=== PATIENT | male | born 1965 | race Caucasian/White ===

== ENCOUNTER → 2016-08-07 | Outpatient (CLI) | payer OTHER ==
--- NOTE | 2016-08-07 15:10 | CT ---
EXAMINATION TYPE: CT abdomen wo con DATE OF EXAM: 08/07/2016 2:57 PM COMPARISON: NONE HISTORY: Abdominal hernia CT DLP: 744 mGycm Automated exposure control for dose reduction was used. TECHNIQUE: Helical acquisition of images was performed from the lung bases through the top of iliac crest to include entire abdomen. CONTRAST: Performed with Oral Contrast and without IV contrast. FINDINGS: Visualized portions of the lungs are clear. There is no pleural or pericardial fluid. The h eart is not enlarged. Within the abdomen, the liver, spleen and gallbladder appear normal. Both adrenal glands appear normal. There is no evidence of hydronephrosis or nephrolithiasis. The pancreas is normal. There is mild to moderate atheromatous calcification of the abdominal aorta and iliac vessels. There is no significant retroperitoneal adenopathy. There is some thickening of the first and second as well as the third part of the duodenum. The remai nder of the small bowel and colon are normal. There is no free fluid or free air. There is a right-sided pars defect at L5. There is a stress reaction in the pars interarticularis on the left. There is no spondylolisthesis. There is mild hypertrophic spondylosis in the lower dorsal s pine. There is a periumbilical hernia containing fat only with a mouth measuring 9 mm. IMPRESSION: 1. THICKENING OF THE FIRST THROUGH THIRD PARTS OF THE DUODENUM OF QUESTIONABLE ETIOLOGY. PLEASE CORRE LATE FOR DUODENITIS. 2. 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 3. MILD DEGENERATIVE CHANGE IN THE SPINE. 4. PERIUMBILICAL HERNIA CONTAINING FAT ONLY WITH A MOUTH MEASURING 9 MM.
== END | disposition home or self-care (01) ==
LOC: RADCTMAIN 13:54
PROVIDERS: ATTEND Family Medicine
DX: K42.9 Umbilical hernia without obstruction or gangrene (principal); K63.89 Other specified diseases of intestine
CPT/HCPCS: 74150

== ENCOUNTER → 2016-08-21 | Outpatient (CLI) | payer OTHER ==
[2016-08-21 10:57] LABS: ALT 109 U/L (21-72); AST 71 U/L (17-59); Alkaline Phosphatase 79 U/L (38-126); Anion Gap 14 mmol/L; Blood Urea Nitrogen 15 mg/dL (9-20); Calcium 9.8 mg/dL (8.4-10.2); Carbon Dioxide 26 mmol/L (22-30); Chloride 100 mmol/L (98-107); Cholesterol 148 mg/dL (<200); Glucose 106 mg/dL (74-99); HDL Cholesterol 31 mg/dL (40-60); Non-African American GFR(MDRD) >60 (>60 ml/min/1.73 sqM); Potassium 4.6 mmol/L (3.5-5.1); Sodium 140 mmol/L (137-145); Total Bilirubin 1.4 mg/dL (0.2-1.3); Total Protein 7.5 g/dL (6.3-8.2); Triglycerides 226 mg/dL (<150)
== END | disposition home or self-care (01) ==
LOC: LABWHC1 10:09
PROVIDERS: ATTEND Internal Medicine Interventional Cardiology
DX: E78.2 Mixed hyperlipidemia (principal)
CPT/HCPCS: 36415; 80053; 80061

== ENCOUNTER → 2016-09-10 | Outpatient (CLI) | payer OTHER ==
[2016-09-10 12:03] LABS: ALT 60 U/L (21-72); AST 39 U/L (17-59)
== END ==
LOC: LABWHC1 11:26
PROVIDERS: ATTEND Internal Medicine Interventional Cardiology
DX: E78.2 Mixed hyperlipidemia (principal)
CPT/HCPCS: 36415; 84450; 84460

== ENCOUNTER → 2017-10-06 | Outpatient (CLI) | payer OTHER ==
[2017-10-06 08:31] LABS: ALT 31 U/L (21-72); AST 21 U/L (17-59); Alkaline Phosphatase 95 U/L (38-126); Anion Gap 13 mmol/L; Blood Urea Nitrogen 11 mg/dL (9-20); Calcium 8.9 mg/dL (8.4-10.2); Carbon Dioxide 25 mmol/L (22-30); Chloride 102 mmol/L (98-107); Cholesterol 139 mg/dL (<200); Glucose 103 mg/dL (74-99); HDL Cholesterol 32 mg/dL (40-60); LDL Cholesterol,Calculated 86 mg/dL (0-99); Potassium 4.3 mmol/L (3.5-5.1); Sodium 140 mmol/L (137-145); Total Bilirubin 1.1 mg/dL (0.2-1.3); Total Protein 6.3 g/dL (6.3-8.2); Triglycerides 105 mg/dL (<150)
== END | disposition home or self-care (01) ==
LOC: LABWHC1 06:55
PROVIDERS: ATTEND Internal Medicine Interventional Cardiology
DX: E78.2 Mixed hyperlipidemia (principal)
CPT/HCPCS: 36415; 80053; 80061

== ENCOUNTER → 2017-11-13 | Outpatient (CLI) | payer MEDICARE ==
--- NOTE | 2017-11-13 08:45 | US ---
EXAMINATION TYPE: US carotid duplex BILAT DATE OF EXAM: 11/13/2017 COMPARISON: NONE CLINICAL HISTORY: DIZZINESS R42,CAD I25.110; prior [place] and coronary artery stents; previous smoker x 3 5 years EXAM MEASUREMENTS: RIGHT: Peak Systolic Velocity (PSV) cm/sec ----- Right CCA: 110.9 ----- Right ICA: 148.1 ----- Right ECA: 133.5 ICA/CCA ratio: 1.3 RIGHT: End Diastole cm/sec ----- Right CCA: 34.5 ----- Right ICA: 38.2 ----- Right ECA: 19.7 LEFT: Peak Systolic Velocity (PSV) cm/sec ----- Left CCA: 75.9 ----- Left ICA: 62.8 ----- Left ECA: 121.1 ICA/CCA ratio: 0.8 LEFT: End Diastole cm/sec ----- Left CCA: 20.2 ----- Left ICA: 25.3 ----- Left ECA: 28.9 VERTEBRALS (direction of flow): Right Vertebral: Antegrade Left Vertebral: Antegrade Rhythm: normal Right carotid bulb shows mild eccentric hyperechoic plaque. Increased peak systolic velocity in right common and internal carotid artery is present. End-diastolic velocity is upper limits of normal. Rat io is within normal limits. Batres scale images on the left show mild to minimal eccentric plaque dista l left common carotid artery into bulb. IMPRESSION: No hemodynamically significant stenosis is clearly seen in either internal carotid artery .
== END | disposition home or self-care (01) ==
LOC: RADUSWWP 06:44
PROVIDERS: ATTEND Family Medicine
DX: I25.110 Atherosclerotic heart disease of native coronary artery with unstable angina pectoris (principal); R42 Dizziness and giddiness
CPT/HCPCS: 93880

== ENCOUNTER → 2018-04-07 | Outpatient (CLI) | payer MEDICARE ==
[2018-04-07 17:47] LABS: LDL Cholesterol,Calculated 85.8 mg/dL (0.0-131.0); VLDL Calculation 30.2 mg/dL (5.00-40.00)
== END ==
LOC: LABWHC1 08:18
PROVIDERS: ATTEND Internal Medicine Interventional Cardiology
DX: E78.2 Mixed hyperlipidemia (principal)
CPT/HCPCS: 36415; 80061; 84450; 84460

== ENCOUNTER → 2019-12-05 | Outpatient (CLI) | payer MEDICARE ==
[2019-12-05 16:03] LABS: Albumin 4.5 g/dL (3.80-4.90); Albumin/Globulin Ratio 2.5 (1.60-3.17); Anion Gap 8.9 mmol/L (4.00-12.00); BUN/Creat Ratio 22.86 Ratio (12.00-20.00); Calcium 8.8 mg/dL (8.7-10.3); Carbon Dioxide 23.1 mmol/L (21.6-31.8); Chol/HDL Ratio 4.22; Globulin 1.8 g/dL (1.6-3.3); LDL Cholesterol,Calculated 71.2 mg/dL (0.0-131.0); Potassium 4.4 mmol/L (3.5-5.5); Total Protein 6.3 g/dL (6.2-8.2); VLDL Calculation 31.8 mg/dL (5.00-40.00)
== END | disposition home or self-care (01) ==
LOC: LABWHC1 08:48
PROVIDERS: ATTEND Nurse Practitioner Adult Health
DX: E78.2 Mixed hyperlipidemia (principal); I25.5 Ischemic cardiomyopathy
CPT/HCPCS: 36415; 80053; 80061